=== PATIENT | male | born 1990 | race Caucasian/White ===

== ENCOUNTER 2016-11-16 15:06 | Emergency (ER) | payer OTHER ==
[~2016-11-16] VITALS: Ht 182.9 cm; Wt 77.1 kg
[2016-11-16 15:16] VITALS: BP 99/64
[2016-11-16] MEDS ORDERED: FLUORESCEIN OPHTHALMIC 1 MG STRIP EACHEYE ONE (15:30)
[2016-11-16] MEDS ORDERED: PROPARACAINE OPHTH 0.5%, 15ML EACHEYE ONE (15:30)
[2016-11-16] MEDS ORDERED: FLUORESCEIN OPHTHALMIC 1 MG STRIP ONE (15:37)
[2016-11-16] MEDS ORDERED: PROPARACAINE OPHTH 0.5%, 15ML ONE (15:39)
[2016-11-16] MEDS ORDERED: ERYTHROMYCIN OPHTH 0.5%, 1GM LEFTEYE ONE (16:00)
== END 2016-11-16 17:13 | disposition home or self-care (01) ==
LOC: ED 17:12
DX: B30.1 Conjunctivitis due to adenovirus (principal)
CPT/HCPCS: 99283

== ENCOUNTER 2016-12-05 10:48 | Emergency (ER) | payer OTHER ==
[~2016-12-05] VITALS: Ht 182.9 cm; Wt 76.1 kg
[2016-12-05 10:59] VITALS: BP 117/76
== END 2016-12-05 11:39 | disposition home or self-care (01) ==
LOC: ED 11:18
DX: K02.9 Dental caries, unspecified (principal)
CPT/HCPCS: 99283

== ENCOUNTER 2017-01-07 18:41 | Emergency (ER) | payer OTHER ==
[~2017-01-07] VITALS: Ht 182.9 cm; Wt 76.9 kg
[2017-01-07 18:51] VITALS: BP 119/77
== END 2017-01-07 20:19 | disposition home or self-care (01) ==
LOC: ED 19:15
DX: K01.1 Impacted teeth (principal); K08.89 Other specified disorders of teeth and supporting structures; F17.210 Nicotine dependence, cigarettes, uncomplicated
CPT/HCPCS: 99283

== ENCOUNTER 2017-01-15 15:05 | Emergency (ER) | payer OTHER ==
[~2017-01-15] VITALS: Ht 182.9 cm; Wt 74.9 kg
[2017-01-15 15:08] VITALS: BP 121/86
== END 2017-01-15 15:48 | disposition home or self-care (01) ==
LOC: ED 15:30
DX: K02.9 Dental caries, unspecified (principal); L03.211 Cellulitis of face
CPT/HCPCS: 99283

== ENCOUNTER 2017-03-05 12:15 | Emergency (ER) | payer SELFPAY ==
[~2017-03-05] VITALS: Ht 182.9 cm; Wt 76.3 kg
[2017-03-05] MEDS ORDERED: DIPH,PERTUSS(ACELL),TET VAC/PF 0.5 ML IM-VACC ONE ×2 (12:45→13:00)
[2017-03-05] MEDS ORDERED: AMOXICILLIN/CLAV 875-125MG TABLET PO ONE (13:30)
[2017-03-05 14:18] VITALS: BP 121/80
== END 2017-03-05 14:20 | disposition home or self-care (01) ==
LOC: ED 14:02
DX: S51.851A Open bite of right forearm, initial encounter (principal); S51.852A Open bite of left forearm, initial encounter; S05.11XA Contusion of eyeball and orbital tissues, right eye, initial encounter; S10.93XA Contusion of unspecified part of neck, initial encounter; F10.99 Alcohol use, unspecified with unspecified alcohol-induced disorder; Y90.9 Presence of alcohol in blood, level not specified; Y04.0XXA Assault by unarmed brawl or fight, initial encounter; Y93.89 Activity, other specified; Y99.8 Other external cause status; Y92.009 Unspecified place in unspecified non-institutional (private) residence as the place of occurrence of the external cause
CPT/HCPCS: 70450; 72125; 90471; 90715